=== PATIENT | male | born 1940 | race Caucasian/White ===

== ENCOUNTER 2022-09-22 01:17 | Emergency (ER) | payer MEDICARE, BC ==
[2022-09-22 01:35] VITALS: BP 128/78; PULSE 90
[2022-09-22] MEDS: Bacitracin Oint 1 GM U/D Packet TOP ONE (01:35)
[2022-09-22] MEDS: Lidocaine 1% with EPINEPHrine 1:100,000 50 ML MDV INFILT ONE (01:35)
[2022-09-22] MEDS ORDERED: Cephalexin 500 MG Cap ONE (02:00)
== END 2022-09-22 02:25 | disposition home or self-care (01) ==
LOC: LB.ED 01:17
DX: S01.01XA Laceration without foreign body of scalp, initial encounter (principal)
CPT/HCPCS: 12002; 12013; 99282; A9270-GY

== ENCOUNTER 2023-10-01 22:50 | Emergency (ER) | payer BC, MEDICARE ==
[2023-10-01 23:28] LABS: BASOPHILS ABSOLUTE AUTO 0.02 K/uL (0.02-0.10); BASOPHILS PERCENT AUTO 0.2 % (0.0-0.5); EOSINOPHILS ABSOLUTE AUTO 0.07 K/uL (0.04-0.40); EOSINOPHILS PERCENT AUTO 0.8 % (1.0-5.0); HEMATOCRIT 44.2 % (40.0-54.0); HEMOGLOBIN 14.6 g/dL (13.0-18.0); LYMPHOCYTES ABSOLUTE AUTO 1.16 K/uL (1.50-4.00); LYMPHOCYTES PERCENT AUTO 13.2 % (20.0-40.0); MEAN CORPUSCULAR HEMOGLOBIN 31.5 pg (27.0-32.0); MEAN CORPUSCULAR VOLUME 96 fL (76-96); MEAN PLATELET VOLUME 9.2 fL (6.0-10.0); NEUTROPHILS ABSOLUTE AUTO 6.82 K/uL (2.00-7.50); NEUTROPHILS PERCENT AUTO 77.8 % (45.0-70.0); PLATELET COUNT,PLT 272 K/uL (150-400); RED BLOOD CELL COUNT 4.63 M/uL (4.50-6.50); RED CELL DISTRIBUTION WIDTH 13.2 % (11.0-16.0); WHITE BLOOD CELL COUNT,WBC 8.8 K/uL (4.0-11.0)
[2023-10-01 23:46] LABS: ALBUMIN 3.8 g/dL (3.4-5.0); BILIRUBIN TOTAL 0.9 mg/dL (0.0-1.0); CARBON DIOXIDE,CO2 28.4 mmol/L (21.0-32.0); CREATININE 1.05 mg/dL (0.70-1.30); EST CRCL DRUG DOSING (CG) 57.79 mL/min; POTASSIUM,K 4.4 mmol/L (3.5-5.1); PROTEIN TOTAL,TP 7.5 g/dL (6.4-8.2)
[2023-10-02 00:05] LABS: INFLUENZA A NAA NEGATIVE (NEGATIVE); INFLUENZA B NAA NEGATIVE (NEGATIVE); RESPIRATORY SYNCYTIAL VIR NAA NEGATIVE (NEGATIVE)
[2023-10-02 00:09] LABS: CORONAVIRUS COVID-19 NAA POSITIVE (NEGATIVE)
[2023-10-02] MEDS ORDERED: guaiFENesin 100 MG/5 ML Soln 10 ML UD Cup ONE (00:10)
[2023-10-02] MEDS ORDERED: guaiFENesin 100 MG/5 ML Soln 10 ML UD Cup PO ONE (00:15)
[2023-10-02 03:31] VITALS: BP 119/78; PULSE 104
== END 2023-10-02 03:20 ==
LOC: SUPCPDRO 22:50 → LB.ED 22:50
DX: U07.1 COVID-19 (principal); K22.2 Esophageal obstruction; E78.00 Pure hypercholesterolemia, unspecified; E03.9 Hypothyroidism, unspecified; Z87.891 Personal history of nicotine dependence; Z79.82 Long term (current) use of aspirin; Z79.899 Other long term (current) drug therapy
CPT/HCPCS: 0241U; 36415; 71045; 80053; 85025; 99285; A9270-GY

== ENCOUNTER 2024-06-20 07:11 | Day surgery (SDC) | payer MEDICARE ==
[~2024-06-20 07:11] MED LIST: Lactated Ringers 1,000 ML IV SCH; Morphine 2 MG/ML SYRINGE IVPUSH PRN; Ondansetron 4 MG/2 ML SDV IVPUSH PRN
[2024-06-20] MEDS: Lactated Ringers 1,000 ML IV SCH (07:45)
[2024-06-20] MEDS: ceFAZolin 2 GM in Sodium Chloride 0.9% 100 ML IV ONE ×2 (09:10→11:02)
[2024-06-20] MEDS: Omeprazole 20 MG Cap.CR PO ONE (09:10)
[2024-06-20] MEDS: Bupivacaine 0.25%/EPINEPHrine 1:200,000 10 ML SDV INFILT ONE (09:42)
[2024-06-20] MEDS ORDERED: Propofol 200 MG/20 ML SDV ONE (10:30)
[2024-06-20] MEDS ORDERED: Lidocaine 1% 30 ML SDV ONE (10:30)
[2024-06-20] MEDS ORDERED: fentaNYL 100 MCG/2 ML SDV ONE (10:30)
[2024-06-20] MEDS ORDERED: ePHEDrine 50 MG/ML SDV ONE (10:30)
[2024-06-20] MEDS ORDERED: Dexamethasone 4 MG/ML SDV ONE (10:30)
[2024-06-20] MEDS ORDERED: Ketorolac 30 MG/ML SDV ONE (10:30)
[2024-06-20] MEDS ORDERED: Ondansetron 4 MG/2 ML SDV ONE (10:30)
[2024-06-20 11:13] VITALS: BP 136/92; PULSE 93
[2024-06-20] MEDS: Acetaminophen/HYDROcodone 325-5 MG Tab PO PRN (12:19)
== END 2024-06-20 13:03 | disposition home or self-care (01) ==
LOC: LB.SDS 07:11
PROVIDERS: ATTEND Surgery
DX: K40.90 Unilateral inguinal hernia, without obstruction or gangrene, not specified as recurrent (principal); D17.6 Benign lipomatous neoplasm of spermatic cord; I10 Essential (primary) hypertension; E78.00 Pure hypercholesterolemia, unspecified
CPT/HCPCS: A9270-GY; C1781; J0690; J1100; J1885; J2405; J2704; J3010; J3490; J7120